=== PATIENT | female | born 1980 | race Caucasian/White ===

== ENCOUNTER → 2017-04-04 | Outpatient (CLI) | payer OTHER ==
--- NOTE | 2017-04-04 15:18 | Diagnostic Imaging Report ---
EXAMINATION: Multiplanar multisequence MRI of the thoracic spine performed without intravenous contrast. INDICATION: Back pain and feeding something stuck between the scapula. FINDINGS: There is normal alignment of the thoracic spine. The vertebral body heights are preserved. Disc signal and heights are normal. The bone marrow signal is also within normal limits. There is no compression fracture. The spinal cord has normal caliber, contour, and signal. There is no spinal canal or foraminal stenosis seen at any level. The paraspinous soft tissues appear grossly unremarkable. IMPRESSION: Unremarkable exam. Dictated by: Dictated on workstation # [id number]
== END ==
LOC: RAD 13:01
PROVIDERS: ATTEND Orthopaedic Surgery
DX: M51.14 Intervertebral disc disorders with radiculopathy, thoracic region (principal)
CPT/HCPCS: 72146